=== PATIENT | male | born 1940 | race Caucasian/White ===

== ENCOUNTER 2021-08-08 08:14 | Inpatient (IN) | payer MEDICARE, OTHER ==
[~2021-08-08] VITALS: Ht 167.6 cm; Wt 95.2 kg
--- NOTE | 2021-08-08 09:02 | NUR ---
DR. JOSEPH AT BEDSIDE FOR ED EVAL.
[2021-08-08] MEDS ORDERED: nitroGLYCERIN 0.4mg/hour patch TD ONE (09:15)
[2021-08-08] MEDS ORDERED: aspirin 81mg tab.chew PO ONE (09:15)
[2021-08-08 09:44] LABS: BASOPHILS # (AUTO) 0.1 X10'3 (0-0.2); BASOPHILS % (AUTO) 0.8 % (0-1); EOSINOPHILS % (AUTO) 0.5 % (0-6); HEMATOCRIT 46.4 % (42.0-52.0); HEMOGLOBIN 16.1 g/dl (14.0-17.9); LYMPHOCYTES # (AUTO) 0.8 X10'3 (1.1-4.8); LYMPHOCYTES % (AUTO) 8.3 % (21-51); MEAN CORPUSCULAR HEMOGLOBIN 30.6 PG (27.0-31.0); MEAN CORPUSCULAR HGB CONC 34.7 g/dL (33.0-36.5); MEAN PLATELET VOLUME 7.7 FL (7.4-10.4); MONOCYTES # (AUTO) 0.7 X10'3 (0-0.9); MONOCYTES % (AUTO) 6.6 % (2-12); NEUTROPHILS # (AUTO) 8.4 X10'3 (1.8-7.7); NEUTROPHILS % (AUTO) 83.8 % (42-75); PLATELET COUNT 233 X10'3 (140-440); RED BLOOD COUNT 5.27 X10'6 (4.70-6.10); RED CELL DISTRIBUTION WIDTH 13.4 % (11.5-14.5)
--- NOTE | 2021-08-08 09:50 | NUR ---
PT REPORTS / CP THAT HAS RETURNED. DR. JOSEPH NOTIFIED.
[2021-08-08 10:03] LABS: ALANINE AMINOTRANSFERASE 26 U/L (12-78); ALBUMIN 3.4 G/DL (3.4-5.0); ALBUMIN/GLOBULIN RATIO 0.8 (1.1-1.5); ALKALINE PHOSPHATASE 96 IU/L (46-116); ANION GAP 8 (8-16); ASPARTATE AMINO TRANSFERASE 29 U/L (10-37); BILIRUBIN,TOTAL 0.5 MG/DL (0.1-1.0); BLOOD UREA NITROGEN 15 MG/DL (7-18); BUN/CREATININE RATIO 12.4 (5.4-32.0); CALCIUM 8.9 MG/DL (8.5-10.1); CHLORIDE 105 MMOL/L (99-107); CREATININE 1.21 MG/DL (0.60-1.10); GLUCOSE 143 MG/DL (70-104); POTASSIUM 3.3 MMOL/L (3.5-5.1); SODIUM 142 MMOL/L (135-145); TOTAL CARBON DIOXIDE 28.7 MMOL/L (24-32); TOTAL PROTEIN 7.8 G/DL (6.4-8.2); eGFR 57 ML/MIN
[2021-08-08 10:07] LABS: MAGNESIUM 2.1 MG/DL (1.5-2.4)
[2021-08-08 10:18] LABS: CLARITY,URINE CLEAR (Clear); COLOR,URINE YELLOW (Yellow); GLUCOSE, URINE NEGATIVE (Neg); KETONES,URINE NEGATIVE (Neg); LEUKOCYTE ESTERASE ,URINE NEGATIVE (Neg); NITRITES, URINE NEGATIVE (Neg); OCCULT BLOOD,URINE NEGATIVE (Neg); PH,URINE 6.5 (4.8-8.0); PROTEIN,URINE NEGATIVE (Neg); UROBILINOGEN,URINE 0.2 E.U/dL (0.2-1.0)
[2021-08-08 10:22] LABS: UA COLLECTION TYPE CLN CATCH MIDSTREAM
[2021-08-08] MEDS ORDERED: acetaminophen 325mg tablet PO PRN ×2 (11:25)
[2021-08-08] MEDS ORDERED: mag hydrox/Alum hydrox/simeth 30ml oral suspension PO PRN (11:25)
[2021-08-08] MEDS ORDERED: aminophylline 250mg/10ml inj. IV PRN (11:25)
[2021-08-08] MEDS ORDERED: morphine 2 MG/ML inj. syringe IV PRN (11:25)
[2021-08-08] MEDS ORDERED: magnesium Cl slow-release 64mg tablet PO PRN (11:25)
[2021-08-08] MEDS ORDERED: nitroGLYCERIN 0.4mg SUBLingual tab SL PRN (11:25)
[2021-08-08] MEDS ORDERED: PERFLUTREN PROTEIN-A MICROSPHR (Optison) 0.22 MG/ML 3ML VIAL IV ONE (11:25)
[2021-08-08] MEDS ORDERED: HYDROcodone/acetaminophen 5mg/325mg tablet PO PRN (11:25)
[2021-08-08] MEDS ORDERED: regadenoson 0.4mg/5ml syringe IV ONE (11:25)
[2021-08-08] MEDS ORDERED: potassium Cl 20 mEq SR tablet PO PRN (11:25)
[2021-08-08] MEDS: normal saline 1000ml 1,000 ML IV SCH ×2 (11:25→16:44)
[2021-08-08] MEDS ORDERED: magnesium 4gm in 100ml NS 100 ML IV PRN (11:25)
[2021-08-08] MEDS ORDERED: magnesium 2GM in 50ml NS 50 ML IV PRN (11:25)
[2021-08-08] MEDS ORDERED: potassium CL 10mEq/100ml bag 100 ML IV PRN (11:25)
[2021-08-08] MEDS ORDERED: metoprolol tartrate 1mg/ml inj IV PRN (11:25)
[2021-08-08] MEDS ORDERED: ondansetron/PF 4mg/2ml inj IV PRN (11:25)
[2021-08-08] MEDS ORDERED: TRAZ-256 PO (12:21)
[2021-08-08] MEDS ORDERED: AMLO5TAB16 PO (12:21)
[2021-08-08] MEDS ORDERED: VITA-268 PO (12:26)
[2021-08-08] MEDS ORDERED: MULT-1085 PO (12:26)
[2021-08-08 16:30] VITALS: BP 114/64
--- NOTE | 2021-08-08 16:30 | NUR ---
Patient arrived from ER. Telemetry placed, vitals taken, no c/o pain or signs of distress. NS infusing at 50ml/hr as per order. Bed locked, lowered, and side rails up x2. Call light with in reach.
[2021-08-08 18:00] VITALS: BP 116/70
--- NOTE | 2021-08-08 18:15 | NUR ---
Problems reprioritized. Patient report given, questions answered & plan of care reviewed with Eusebio KLEIN.
--- NOTE | 2021-08-08 18:34 | NUR ---
Patient in room PCU 3026. I have received report from josephine Cordon and had the opportunity to ask questions and assume patient care.
[2021-08-08] MEDS: potassium Cl 20 mEq SR tablet PO PRN (18:47)
[2021-08-08] MEDS: K and/or MAG REPLACEMENT MC SCH (20:00)
[2021-08-08] MEDS: heparin, porcine 5000 units/ml vial SQ SCH (20:10)
[2021-08-08] MEDS ORDERED: temazepam 15mg capsule PO PRN (21:00)
[2021-08-08 22:00] VITALS: BP 102/60
[2021-08-09] VITALS (8 sets, daily range): BP systolic 103–116; BP diastolic 47–62
[2021-08-09] MEDS: potassium Cl 20 mEq SR tablet PO PRN (00:50)
--- NOTE | 2021-08-09 06:32 | NUR ---
Problems reprioritized. Patient report given, questions answered & plan of care reviewed with josephine Guillaume.
--- NOTE | 2021-08-09 06:53 | NUR ---
Patient in room PCU 3026. I have received report from Audrey KLEIN and had the opportunity to ask questions and assume patient care.
[2021-08-09 06:55] LABS: BASOPHILS # (AUTO) 0.1 X10'3 (0-0.2); BASOPHILS % (AUTO) 1.3 % (0-1); EOSINOPHILS # (AUTO) 0.1 X10'3 (0-0.9); EOSINOPHILS % (AUTO) 1.4 % (0-6); HEMOGLOBIN 13.9 g/dl (14.0-17.9); LYMPHOCYTES # (AUTO) 1.3 X10'3 (1.1-4.8); LYMPHOCYTES % (AUTO) 13.7 % (21-51); MEAN CORPUSCULAR HEMOGLOBIN 30.6 PG (27.0-31.0); MEAN CORPUSCULAR HGB CONC 34.7 g/dL (33.0-36.5); MEAN CORPUSCULAR VOLUME 88.2 FL (78-98); MEAN PLATELET VOLUME 8.4 FL (7.4-10.4); MONOCYTES % (AUTO) 10.4 % (2-12); NEUTROPHILS # (AUTO) 6.9 X10'3 (1.8-7.7); NEUTROPHILS % (AUTO) 73.2 % (42-75); PLATELET COUNT 226 X10'3 (140-440); RED BLOOD COUNT 4.54 X10'6 (4.70-6.10); RED CELL DISTRIBUTION WIDTH 13.9 % (11.5-14.5); WHITE BLOOD COUNT 9.4 X10'3 (4.5-11.0)
[2021-08-09 07:23] LABS: ALANINE AMINOTRANSFERASE 24 U/L (12-78); ALBUMIN 2.9 G/DL (3.4-5.0); ALBUMIN/GLOBULIN RATIO 0.8 (1.1-1.5); ALKALINE PHOSPHATASE 72 IU/L (46-116); ANION GAP 10 (8-16); ASPARTATE AMINO TRANSFERASE 16 U/L (10-37); BILIRUBIN,TOTAL 0.6 MG/DL (0.1-1.0); BLOOD UREA NITROGEN 20 MG/DL (7-18); BUN/CREATININE RATIO 15.4 (5.4-32.0); CALCIUM 8.3 MG/DL (8.5-10.1); CHLORIDE 109 MMOL/L (99-107); GLUCOSE 94 MG/DL (70-104); SODIUM 144 MMOL/L (135-145); TOTAL CARBON DIOXIDE 24.7 MMOL/L (24-32); TOTAL PROTEIN 6.4 G/DL (6.4-8.2); eGFR 53 ML/MIN
[2021-08-09] MEDS: K and/or MAG REPLACEMENT MC SCH (08:00)
[2021-08-09] MEDS: heparin, porcine 5000 units/ml vial SQ SCH (08:36)
--- NOTE | 2021-08-09 11:30 | NUR ---
Dr. Romero called to confirm Discharge of patient. MD would like patient to FU in office. Continue to monitor,
--- NOTE | 2021-08-09 12:35 | NUR ---
Dr. Hendricks and nurse at bedside with patient. MD aware of Carolyne scan results and confirming negative result. OK to discharge pending ok with Dr. Romero. Called Dr. Romero office and left message with rim roller operator. We will continue to monitor.
--- NOTE | 2021-08-09 14:05 | NUR ---
Patient OK to discahrge per MD orders. All patient paperwork collected signs and reviewed. Pt was educated on FU and continue all home medications. Pts IV was removed, tele removed and returned and all patients items collected and sent with pt. Patient was escorted to front lobby to wait for rider, per request of pt.
== END 2021-08-09 14:14 | disposition home or self-care (01) | DRG 195 ==
LOC: ER 08:15 → ED HOLD 11:27 → EDBEDREQ 16:04 → PCU 3S 16:26
PROVIDERS: ADMIT Internal Medicine; ATTEND Internal Medicine
PROC: 4A02XM4 Measurement of Cardiac Total Activity, External Approach (ICD-10-PCS; principal; 2021-08-09)
PROC: 3E073KZ Introduction of Other Diagnostic Substance into Coronary Artery, Percutaneous Approach (ICD-10-PCS; 2021-08-09)
DX: R09.1 Pleurisy (principal); E11.22 Type 2 diabetes mellitus with diabetic chronic kidney disease; E87.6 Hypokalemia; F17.210 Nicotine dependence, cigarettes, uncomplicated; H91.93 Unspecified hearing loss, bilateral; I12.9 Hypertensive chronic kidney disease with stage 1 through stage 4 chronic kidney disease, or unspecified chronic kidney disease; N18.30 Chronic kidney disease, stage 3 unspecified; N42.9 Disorder of prostate, unspecified; Z71.6 Tobacco abuse counseling
CPT/HCPCS: 36415; 71045; 78452; 80053; 81003; 83735; 84484; 85025; 85610; 87081; 93005; 93017; 93306; 99285; A9500; G0378; J1644; J2785; J7030

== ENCOUNTER 2022-06-02 10:49 | Emergency (ER) | payer MEDICARE, OTHER ==
[~2022-06-02] VITALS: Ht 177.8 cm; Wt 93.2 kg
[~2022-06-02 10:49] MED LIST: AMLO5TAB16 PO; MULT-1085 PO; TRAZ-256 PO; VITA-268 PO
[2022-06-02 11:39] LABS: BASOPHILS # (AUTO) 0.1 X10'3 (0-0.2); BASOPHILS % (AUTO) 1.3 % (0-1); EOSINOPHILS # (AUTO) 0.1 X10'3 (0-0.9); EOSINOPHILS % (AUTO) 1.9 % (0-6); HEMATOCRIT 47.1 % (42.0-52.0); HEMOGLOBIN 16.1 g/dl (14.0-17.9); LYMPHOCYTES # (AUTO) 1.1 X10'3 (1.1-4.8); LYMPHOCYTES % (AUTO) 16.3 % (21-51); MEAN CORPUSCULAR HEMOGLOBIN 30.3 PG (27.0-31.0); MEAN CORPUSCULAR HGB CONC 34.3 g/dL (33.0-36.5); MEAN CORPUSCULAR VOLUME 88.3 FL (78-98); MEAN PLATELET VOLUME 7.5 FL (7.4-10.4); MONOCYTES # (AUTO) 0.7 X10'3 (0-0.9); MONOCYTES % (AUTO) 10.4 % (2-12); NEUTROPHILS # (AUTO) 4.9 X10'3 (1.8-7.7); NEUTROPHILS % (AUTO) 70.1 % (42-75); PLATELET COUNT 221 X10'3 (140-440); RED BLOOD COUNT 5.33 X10'6 (4.70-6.10); RED CELL DISTRIBUTION WIDTH 13.4 % (11.5-14.5)
[2022-06-02 11:57] LABS: ALANINE AMINOTRANSFERASE 21 U/L (12-78); ALBUMIN 3.6 G/DL (3.4-5.0); ALBUMIN/GLOBULIN RATIO 0.8 (1.1-1.5); ALKALINE PHOSPHATASE 94 IU/L (46-116); ANION GAP 5 (8-16); ASPARTATE AMINO TRANSFERASE 18 U/L (10-37); BILIRUBIN,TOTAL 0.5 MG/DL (0.1-1.0); BLOOD UREA NITROGEN 12 MG/DL (7-18); BUN/CREATININE RATIO 11.4 (5.4-32.0); CALCIUM 9.1 MG/DL (8.5-10.1); CHLORIDE 104 MMOL/L (99-107); CREATININE 1.05 MG/DL (0.60-1.10); GLUCOSE 112 MG/DL (70-104); POTASSIUM 3.8 MMOL/L (3.5-5.1); SODIUM 140 MMOL/L (135-145); TOTAL PROTEIN 7.9 G/DL (6.4-8.2); eGFR 67 ML/MIN
[2022-06-02 13:02] LABS: COLOR,URINE RED (Yellow); UA COLLECTION TYPE VOIDED
[2022-06-02 13:03] LABS: CLARITY,URINE Bloody (Clear)
[2022-06-02 13:16] LABS: RBC,URINE TNTC /HPF (0-2)
[2022-06-02 13:18] LABS: BACTERIA,URINE FEW /HPF (Neg); SQUAMOUS EPITHELIAL CELL,UR NONE SEEN /LPF (FEW); WBC,URINE 0-4 /HPF (0-4)
[2022-06-02 13:51] VITALS: BP 139/83
== END 2022-06-02 15:03 | disposition home or self-care (01) ==
LOC: ER 10:50
DX: R31.9 Hematuria, unspecified (principal); E11.9 Type 2 diabetes mellitus without complications; I10 Essential (primary) hypertension; Z79.899 Other long term (current) drug therapy
CPT/HCPCS: 36415; 80053; 81001; 85025; 99283